=== PATIENT | male | born 1955 | race Asian ===

== ENCOUNTER → 2021-04-14 | Outpatient (CLI) | payer MEDICARE, OTHER | END | disposition home or self-care (01) | LOC: RADMN 16:34 | PROVIDERS: ATTEND Internal Medicine | DX: M19.011 Primary osteoarthritis, right shoulder (principal); M19.012 Primary osteoarthritis, left shoulder; J98.11 Atelectasis | CPT/HCPCS: 71046 ==

== ENCOUNTER → 2021-04-21 | Outpatient (CLI) | payer MEDICARE, OTHER | END | disposition home or self-care (01) | LOC: RADPV 09:41 | PROVIDERS: ATTEND Internal Medicine | DX: R60.0 Localized edema (principal) | CPT/HCPCS: 93925; 93970 ==

== ENCOUNTER → 2021-10-18 | Outpatient (CLI) | payer MEDICARE, OTHER | END | disposition home or self-care (01) | LOC: RADMN 15:04 | PROVIDERS: ATTEND Neuromusculoskeletal Medicine, Sports Medicine | DX: S09.90XA Unspecified injury of head, initial encounter (principal); X58.XXXA Exposure to other specified factors, initial encounter; Y93.89 Activity, other specified; Y92.89 Other specified places as the place of occurrence of the external cause; Y99.8 Other external cause status | CPT/HCPCS: 70260 ==

== ENCOUNTER → 2021-11-14 | Outpatient (CLI) | payer MEDICARE, OTHER | END | disposition home or self-care (01) | LOC: RADMN 14:52 | PROVIDERS: ATTEND Neuromusculoskeletal Medicine, Sports Medicine | DX: S06.5X0A Traumatic subdural hemorrhage without loss of consciousness, initial encounter (principal); X58.XXXA Exposure to other specified factors, initial encounter; Y93.89 Activity, other specified; Y92.89 Other specified places as the place of occurrence of the external cause; Y99.8 Other external cause status | CPT/HCPCS: 70450 ==

== ENCOUNTER 2024-10-03 18:45 | Emergency (ER) | payer MEDICARE, OTHER ==
[~2024-10-03] VITALS: Ht 172.7 cm; Wt 84.1 kg
[2024-10-03 18:56] VITALS: TEMP 98.2
[2024-10-03] MEDS ORDERED: CEPH-558 PO (22:15)
[2024-10-03] MEDS ORDERED: ACET-2080 PO (22:15)
[2024-10-03] MEDS ORDERED: IBUP-1554 PO (22:15)
[2024-10-03] MEDS: ACETAMINOPHEN 500 MG TABLET PO ONE (22:24)
[2024-10-03] MEDS: IBUPROFEN 600 MG TABLET PO ONE (22:24)
[2024-10-03] MEDS: CEPHALEXIN MONOHYDRATE 500 MG CAPSULE PO ONE (22:24)
[2024-10-03 22:27] VITALS: BP 130/59; PULSE 85; RESP 18; O2SAT 98
[2024-10-04] MEDS ORDERED: ACET-2080 PO (11:40)
[2024-10-04] MEDS ORDERED: IBUP-1554 PO (11:40)
[2024-10-04] MEDS ORDERED: CEPH-558 PO (11:40)
== END 2024-10-03 22:29 | disposition home or self-care (01) ==
LOC: EMS 18:45
DX: J02.9 Acute pharyngitis, unspecified (principal); I10 Essential (primary) hypertension; F17.210 Nicotine dependence, cigarettes, uncomplicated
CPT/HCPCS: 87430; 99284; Z7502; Z7610